=== PATIENT | female | born 1950 | race Caucasian/White ===

== ENCOUNTER 2019-12-13 18:18 | Inpatient (IN) | payer MEDICARE, OTHER ==
[~2019-12-13] VITALS: Ht 162.6 cm; Wt 48.1 kg
--- NOTE | 2019-12-13 18:38 | NUR ---
patient is awake and alert, she is ambulatory with steady gait. Security at bedside for safety and observation.
[2019-12-13] MEDS ORDERED: CEPH-570 PO (18:44)
[2019-12-13] MEDS ORDERED: HYDR-3980 PO (18:44)
[2019-12-13] MEDS ORDERED: QUET25TA PO (18:44)
--- NOTE | 2019-12-13 19:04 | NUR ---
Sergio, observer here to stay with patient. Hand off report given to Dana FRENCH
--- NOTE | 2019-12-13 21:45 | NUR ---
Pt. admitted to [facility] , under care of Dr. Rachel Belongs List completed. Report given to MANOLO Lopez
[2019-12-13 22:00] VITALS: BP 155/66
[2019-12-13] MEDS: CEphaleXIN 500 MG CAPSULE PO SCH (22:05)
[2019-12-13] MEDS ORDERED: TEMAZEPAM 7.5 MG CAPSULE PO PRN (22:15)
[2019-12-13] MEDS ORDERED: LORAZEPAM 1 MG TABLET PO PRN (22:15)
[2019-12-13] MEDS ORDERED: MAG HYDROX/AL HYDROX/SIMETH 30 ML LIQUID UDC PO PRN (22:15)
[2019-12-13] MEDS ORDERED: MAGNESIUM HYDROXIDE 30 ML LIQUID UDC PO PRN (22:15)
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
[2019-12-14] MEDS: CEphaleXIN 500 MG CAPSULE PO SCH ×5 (00:14→20:55)
[2019-12-14] MEDS: TEMAZEPAM 7.5 MG CAPSULE PO PRN (00:49)
--- NOTE | 2019-12-14 05:36 | NUR ---
Patient slept 5.30 hours after receiving a sleeping pill. Bed alarm on and patient up 2x during the night asking " Where is my baby". And " Is my son coming ?" Real Estate Valuer reassured patient and reoriented her to the situation. This patient is very confused but not agitated at this time. Continuing to monitor for safety and provide redirection and reorientation as needed.
[2019-12-14 07:30] VITALS: BP 136/75
[2019-12-14 08:06] LABS: BILIRUBIN,TOTAL 0.5 mg/dL (0.2-1.0); CREATININE 0.9 mg/dL (0.6-1.3); POTASSIUM 3.3 mmol/L (3.5-5.1); TOTAL PROTEIN, SERUM 6.7 g/dL (6.4-8.2)
--- NOTE | 2019-12-14 11:28 | NUR ---
Social Work Initial Discharge Plan: Patient currently lives in an RV with cleo Wallace ([phone]). [address], [place] [address]; ([phone]). Per cleo Wallace ([phone]) would want pt back home upon discharge. housekeeping worker will work with the MD and the treatment team to help coordinate a proper discharge plan.
--- NOTE | 2019-12-14 11:29 | NUR ---
Social Work Family Contact: general lithographic worker contacted patient's son Rodrigo ([phone]) to gather collateral.
--- NOTE | 2019-12-14 11:31 | NUR ---
Social Work Firearms: Flight Operations Inspector completed and submitted a [employer] firearms report for 5150 grave disability certification. A copy of report has been placed in patient chart.
[2019-12-14] MEDS ORDERED: POTASSIUM CHLORIDE 20 MEQ TAB.PRT.SR PO ONE (12:00)
--- NOTE | 2019-12-14 12:59 | NUR ---
Social Work Family Contact: wet room worker contacted patient's son Rodrigo ([phone]) spoke with son who mentioned that he lives in a RV with pt. 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 Pt's son Rodrigo is refusing to understand pt's mental illness. This typewriter mechanic had to educate pt multiple times regarding pt's condition and safety risks. Pt's son threatened this typewriter mechanic if pt is not returning back home he will hire a brushing operator. This typewriter mechanic was able to calm son down and will discuss discharge planning at a later time.
--- NOTE | 2019-12-14 13:07 | NUR ---
Social Work APS Report: This auto service writer filed an APS report for wellness check at home (Intake ID [id number])
[2019-12-14] MEDS: OLANZAPINE ZYDIS 5 MG TAB.RAPDIS PO SCH ×2 (14:51→18:10)
[2019-12-14] MEDS ORDERED: INSULIN REGULAR, HUMAN 300 UNIT/3 ML VIAL SQ PRN (15:45)
[2019-12-14] MEDS ORDERED: DEXTROSE 50% 50 ML DISP.SYRIN IV PRN (15:45)
[2019-12-14 16:00] VITALS: BP 146/77
[2019-12-14] MEDS: BLOOD SUGAR DIAGNOSTIC 1 EACH STRIP VI SCH ×2 (18:09→21:22)
[2019-12-14] MEDS: METFORMIN HCL 500 MG TABLET PO SCH (18:10)
[2019-12-14 20:35] VITALS: BP 128/73
--- NOTE | 2019-12-14 22:09 | NUR ---
GPS/NSG Patient first observed awake on the unit pacing/wandering in the hallway with disheveled unkempt appearance. Patient appeared to be oriented to name otherwise patient is confused and requires constant redirection, as well as orientation to room. Patient has no insight into current situation and exhibits poor judjement. Compliant with medication, is currently on atb tx for UTI. BS hs 79. Continue to provide a safe environment.
[2019-12-15] MEDS: BLOOD SUGAR DIAGNOSTIC 1 EACH STRIP VI SCH ×4 (06:38→20:12)
[2019-12-15 07:30] VITALS: BP 139/71
[2019-12-15] MEDS: OLANZAPINE ZYDIS 5 MG TAB.RAPDIS PO SCH ×2 (08:30→17:03)
[2019-12-15] MEDS: METFORMIN HCL 500 MG TABLET PO SCH ×2 (08:30→17:03)
[2019-12-15] MEDS: CEphaleXIN 500 MG CAPSULE PO SCH ×4 (08:30→20:12)
--- NOTE | 2019-12-15 11:00 | NUR ---
received a call from son Rodrigo , son was upset that the hold was extended to 5250 hold today, the flex o writer operator tries to educate the son about the hold and the Doctor will call him , the Son gave his number ([phone]), called and spoke with regarding the concern
[2019-12-15 16:00] VITALS: BP 112/40
--- NOTE | 2019-12-15 16:47 | NUR ---
called and notify Dr. Alegria for the neuro consult,doctor acknowledge the call and will make rounds [place]
--- NOTE | 2019-12-15 18:32 | NUR ---
GPS: Nursing Notes: Destructive Behavior to Others: Patient is awake and responding to her name, confused, disorganized, forgetful, impaired judgment, wandering around the unit aimlessly, unable to find her room by herself, redirected and reoriented during shift constantly, unable to formulate a viable plan for self care, gets easily irritable when redirected at times, one episode of throwing her coffee on the floor, stated, "I leaving today.. My son Rodrigo is coming for me..", believes she is leaving today, continue with treatment plan.
[2019-12-15] MEDS: CLONAZEPAM 0.5 MG TABLET PO PRN (19:55)
[2019-12-15 20:26] VITALS: BP 147/64
--- NOTE | 2019-12-15 23:42 | NUR ---
Pt awoke and appeared restless. Pt agreed to take a sleeping pill, but when this functional tester typewriters got back with the medication, Pt was sleeping. Restoril 7.5mg held at this time. Charge nurse aware.
[2019-12-16] MEDS: TEMAZEPAM 7.5 MG CAPSULE PO PRN ×2 (00:30→22:19)
--- NOTE | 2019-12-16 00:31 | NUR ---
Pt awoke again and attempted to get into her roommate's bed. Pt placed in tr chair and given Restoril 7.5mg. Will continue to monitor.
[2019-12-16] MEDS: CEphaleXIN 500 MG CAPSULE PO SCH ×3 (05:50→21:08)
--- NOTE | 2019-12-16 06:27 | NUR ---
Received Pt sitting in the tr chair in the hallway with disheveled, unkempt appearance. A+Ox1 to her name only, Pt is disoriented, confused, and requires constant redirection, as well as orientation to her room and the bathroom. Pt has poor insight into current situation and exhibits poor judgement. Remained restless and anxious throughout the shift, Klonopin 0.5mg prn at 1955 and Restoril 7.5mg prn at 0030 both ineffective. Pt again placed in tr chair for her safety as she was wandering and unsteady, and unable to comprehend staff direction. Disorganized in thought process and mentally preoccupied. Compliant with medications with prompting. HS BS HS 112. AM BS 79, no coverage given. Denies pain, VS stable.
[2019-12-16] MEDS: BLOOD SUGAR DIAGNOSTIC 1 EACH STRIP VI SCH ×4 (06:32→20:41)
[2019-12-16 08:02] VITALS: BP 123/68
[2019-12-16] MEDS: METFORMIN HCL 500 MG TABLET PO SCH ×2 (08:39→17:02)
[2019-12-16] MEDS: OLANZAPINE ZYDIS 5 MG TAB.RAPDIS PO SCH ×2 (08:39→16:54)
[2019-12-16] MEDS: CLONAZEPAM 0.5 MG TABLET PO PRN ×2 (13:04→19:42)
[2019-12-16 15:36] VITALS: BP 142/87
--- NOTE | 2019-12-16 18:15 | NUR ---
GPS: Nursing Notes: Destructive Behavior to Others: Patient awake and responding to her name, confused, disorganized, resistant with nursing care, impaired judgment, wandering around the unit aimlessly, getting into other pt's room, redirected and reoriented during shift, but gets easily irritable, talking to unseen others at times, internally preoccupied, disoriented, verbal abusive when talking to self, unable to formulate a viable plan for self care, sundown behavior, angry and anxious affect, assisted with ADL's, poor appetite, continue with treatment plan.
[2019-12-16] MEDS: ACETAMINOPHEN 325 MG TABLET PO PRN (19:43)
[2019-12-16 20:02] VITALS: BP 136/72
[2019-12-17] MEDS: CLONAZEPAM 0.5 MG TABLET PO PRN ×2 (02:38→21:26)
[2019-12-17] MEDS: CEphaleXIN 500 MG CAPSULE PO SCH ×3 (05:51→21:26)
--- NOTE | 2019-12-17 06:33 | NUR ---
PT DIDN'T SLEEP ON MY SHIFT. PT IN NO ACUTE DISTRESS. PT CONFUSED AND NEEDS REORIENTATION. . PRESCRIBED MEDICATION GIVEN AND PT TOLERATED IT WELL. SAFETY AND COMFORT PROVIDED. ALL NEEDS ARE MET. WILL ENDORSE TO INCOMING NURSE FOR CONTINUITY OF CARE.
[2019-12-17] MEDS: BLOOD SUGAR DIAGNOSTIC 1 EACH STRIP VI SCH ×4 (06:34→21:08)
[2019-12-17 07:30] VITALS: BP 138/58
[2019-12-17] MEDS: HYDROCODONE/APAP 10-325 MG TABLET PO PRN ×2 (07:50→14:41)
[2019-12-17] MEDS: METFORMIN HCL 500 MG TABLET PO SCH ×2 (08:00→17:27)
[2019-12-17] MEDS: OLANZAPINE ZYDIS 5 MG TAB.RAPDIS PO SCH ×2 (08:31→16:06)
--- NOTE | 2019-12-17 12:54 | NUR ---
GPS: Nursing Notes: Destructive Behavior to Others: Patient is awake and responding to her name, poor anger management, resistant with nursing care, responding to internal stimuli by, having visual hallucinations, unsteady gait due to her VH, patient is bending herself when walking and trying to pick things from the floor, having auditory hallucinations, talking to unseen others, verbal abusive to unseen others, redirected and reoriented to reality, but becomes easily irritable, stating "My mother is there... I am talking to my father..", talking incoherently, disorganized, confused, constantly talking to self and grabbing the air, episodes of crying when calling for her mother, unable to formulate a viable plan for self care, episodes of trying to scratch staff when assisting with ADL's, continue with treatment plan.
[2019-12-17 16:00] VITALS: BP 141/81
--- NOTE | 2019-12-17 16:13 | NUR ---
Family Contact: SW contacted patient's son Rodrigo ([phone]) and discussed how the pts son wants to be the pts DPOA. SW stated that the process cannot be started here while the pt is on a legal hold and once she is discharged that process can be started.
[2019-12-17 20:00] VITALS: BP 141/58
[2019-12-17] MEDS: ACETAMINOPHEN 325 MG TABLET PO PRN (21:26)
[2019-12-18] MEDS: TEMAZEPAM 7.5 MG CAPSULE PO PRN (01:18)
--- NOTE | 2019-12-18 03:42 | NUR ---
RECEIVED PATIENT IN A MELONY CHAIR IN THE HALLWAY. SHE APPEARS CONFUSED AND DISORIENTED.NOTED TO BE RESPONDING TO INTERNAL STIMULI SHE KEPT TRYING TO PICK AND PULL AN IMAGINARY "SOMETHING" FROM THE FLOOR. USES VERBALLY OFFENSIVE LANGUAGE TO BOTH STAFF AND UNSEEN OTHERS WITH VERY POOR ANGER MANAGEMENT.GIVEN A REALITY RE ORIENTATION BUT THAT MAKES HER ALL THE MORE IRRITABLE. VERY DIFFICULT AND RESISTANT TO TAKING HER MEDICATIONS. SAFETY MEASURES PUT IN PLACE. VISUAL CHECKS MADE ON HER. WILL CONTINUE TO MONITOR.
[2019-12-18] MEDS: BLOOD SUGAR DIAGNOSTIC 1 EACH STRIP VI SCH (06:45)
--- NOTE | 2019-12-18 06:51 | NUR ---
SLEPT FOR ONLY 1HOUR DESPITE BEING GIVEN RESTORIL AT 01:00..PERSONAL HYGIENE MAINTAINED.
[2019-12-18] MEDS: METFORMIN HCL 500 MG TABLET PO SCH ×2 (08:00→17:04)
[2019-12-18] MEDS: HYDROCODONE/APAP 10-325 MG TABLET PO PRN (08:26)
[2019-12-18] MEDS: OLANZAPINE ZYDIS 5 MG TAB.RAPDIS PO SCH ×2 (08:26→16:54)
[2019-12-18 08:38] VITALS: BP 133/58
--- NOTE | 2019-12-18 11:57 | NUR ---
[place] Elder Abuse Hotline: ARETHA called the [place] Elder Abuse Hotline (328-434-3171) and spoke to Damir regarding additional information for the APS report that was made and he recommended that the SW fill out another report due to the additional information. He provided the SW with the online reporting website.
--- NOTE | 2019-12-18 12:00 | NUR ---
Social Work Family Contact: chemical worker contacted patient's son Rodrigo ([phone]) and requested to speak to him regarding the pts discharge plan. Pts son stated that he will not have the pt be discharged anywhere else because he wants her to be home with him. SW stated that it will be the pts decision and if she agrees then she can go home with him. SW stated that she will call the pts son the next day with information regarding the pts medication changes and whether or not she wants to go home and if she does go home then if there is a return agreement from the [facility].
--- NOTE | 2019-12-18 13:57 | NUR ---
[facility] Contact: ARETHA called Yuli ([phone]) who stated that there is a return agreement if the pt is discharged home.
--- NOTE | 2019-12-18 14:59 | NUR ---
APS Report: SW conducted another APS report for the pt on the online reporting website: https://www.reporttoaps.org and printed out the SOC 341 form that was completed to put in the pts chart.
[2019-12-18 15:39] VITALS: BP 90/42
--- NOTE | 2019-12-18 15:57 | NUR ---
Social Work Family Contact: Patient's son Rodrigo ([phone]) contacted the SW and was verbally aggressive and was using profanities because he stated that he wanted the patient to be discharged back to him. Pt's son stated that he has been taking care of her after her brain injury and stated that she does not need extra help. SW stated that the recommendation for this pt is a SNF so that she can receive physical therapy, medication management and also be constantly assessed by doctors and nurses. SW also stated that there are concerns because the pts toxicology showed positive for methamphetamines. Pts son stated that it was only in her urine and not her blood which does not make sense and so the doctors must have done something. Pts son became even more agitated and stated that he was going to get his cloth framer involved. At this point SW asked if he would like to speak to her warehouse packaging supervisor and he agreed. ARETHA transferred the call to her warehouse packaging supervisor, Blanca Metzger LCSW.
--- NOTE | 2019-12-18 16:00 | NUR ---
SNF Referral: ARETHA faxed a referral to [facility] with attention to Yla to the fax number: [phone].
--- NOTE | 2019-12-18 16:07 | NUR ---
GPS: Nursing Notes: Destructive Behavior to Others: Patient is awake and responding to her name, confused, resistant with nursing care, disorganized, impaired judgment, did not sleep for the last three nights, gets easily irritable when redirected, having AH/VH this am, talking to unseen others, constantly grabbing the air, calling for her mother, believes that she is here, redirected and reoriented to reality during shift, poor appetite, but drinking her Glucerna, unable to formulate a viable plan for self care, continue with treatment plan.
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
--- NOTE | 2019-12-18 18:38 | NUR ---
received a call from the patients son Rodrigo , the son wanted to talk to her mom on the phone to convinced her to go home with him, patient was asleep, tried to wake her up, patient move around but went back to sleep, then the son on speaker phone was upset and threatened the selling underwriter , the son says that he will call the media and come to the hospital tomorrow to take her mom, selling underwriter informed transfer and pumphouse operator and security department of this threat Addendum: 12/18/19 at 1850 by LINETTE MENA RN Dr. leong notified
[2019-12-18 20:04] VITALS: BP 108/45
--- NOTE | 2019-12-19 06:13 | NUR ---
Pt slept 10 hrs total. Woke up around 3 in the morning, and used the restroom. Pt also taken Glucerna boost. Tolerated well. Up on gerichair at this time. No signs of agitation.
[2019-12-19 07:30] VITALS: BP 102/50
[2019-12-19] MEDS: OLANZAPINE ZYDIS 5 MG TAB.RAPDIS PO SCH ×3 (08:51→17:27)
[2019-12-19] MEDS: METFORMIN HCL 500 MG TABLET PO SCH ×2 (08:51→17:26)
--- NOTE | 2019-12-19 11:25 | NUR ---
Probable Cause Hearing: Pts 5250 hold was upheld for grave disability.
--- NOTE | 2019-12-19 13:05 | NUR ---
SNF Contact: ARETHA contacted Song ([phone]), mortgage loan coordinator from [facility], and was informed that the pt was accepted to their facility.
--- NOTE | 2019-12-19 13:06 | NUR ---
[place] Officer Contact: ARETHA contacted Officer Issa Sims ([phone]) from the [place] [employer] as he was the one who wrote the pts 5150 hold. Officer was not in the office so ARETHA left a voicemail message stating that she would like to discuss the events of the hold.
[2019-12-19 16:00] VITALS: BP 126/75
[2019-12-19 20:00] VITALS: BP 136/94
--- NOTE | 2019-12-19 20:30 | NUR ---
RECEIVED PATIENT SITTING IN A NATHANIEL CHAIR NEAR THE NURSING STATION. PT NOTED A/O X 1. SHE IS CALM AT THIS TIME. PT IS A POOR HISTORIAN. SHE IS UNABLE TO HAVE A MEANINGFUL CONVERSATION WITH THIS LOST CHARGE CARD CLERK. V/S STABLE. SHE IS REASSURED FOR HER SAFETY. SAFETY AND FALL PRECAUTION IN PLACE. WILL CONTINUE TO MONITOR/
[2019-12-19] MEDS: TEMAZEPAM 7.5 MG CAPSULE PO PRN (22:20)
[2019-12-20 07:30] VITALS: BP 104/68
[2019-12-20] MEDS: OLANZAPINE ZYDIS 5 MG TAB.RAPDIS PO SCH ×3 (08:24→17:20)
[2019-12-20] MEDS: METFORMIN HCL 500 MG TABLET PO SCH ×2 (08:24→17:20)
--- NOTE | 2019-12-20 09:51 | NUR ---
patient is awake and verbally responsive, calm and cooperative. No signs of distress noted. Afebrile. No complain of Pain or discomfort. complaint with medications. safety Measures provided. Will continue to monitor.
--- NOTE | 2019-12-20 14:06 | NUR ---
Social Work Family Contact: pantry goods worker contacted patient's son Rodrigo ([phone]) to return his voicemail messages. SW stated that she is aware that he has concerns regarding the pts discharge plan. Pts son became verbally aggressive with the SW once again and made the following statements: "I am going take her out of there. She belongs at home with me," "If my mother dies then you are a murderer," "You are all liars and you think that me and my mom, an old lady, are liars," "I am going to come after you. I am going to come after all of you. I have apricot washer on the case, I have the media on this case, and they are all going to come after you." SW stated that she will not engage with threats and that she will call him back at a later time to inform him of the placement location and date.
--- NOTE | 2019-12-20 15:49 | NUR ---
[place] Officer Contact: ARETHA contacted Officer Issa Mansfield ([phone]) from the [place] [employer] as he was the one who wrote the pts 5150 hold. Officer was not in the office so SW left a voicemail message stating that she would like to discuss the events of the hold. ARETHA was also informed that she can email him since his shift is from 6:30pm-6:30am and so he will not be on duty during the SW's time period. ARETHA sent an email asking for information to be left on her voicemail.
[2019-12-20 16:00] VITALS: BP 130/76
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
--- NOTE | 2019-12-20 16:12 | NUR ---
[place] Elder Abuse Hotline: ARETHA called the [place] Elder Abuse Hotline ([phone]) and spoke to Damir who stated that he did receive the report and that it was being reviewed. He stated that he cannot give me much more information than that but was willing to verbally take down more information from the SW regarding the interactions with the pts son. He stated that he believes that we should not advise him as to when the pt is being discharged and where. He believes that as it is our job to keep the pt safe we can refrain from providing this information.
[2019-12-20 20:43] VITALS: BP 123/80
[2019-12-20] MEDS: TEMAZEPAM 7.5 MG CAPSULE PO PRN (22:08)
[2019-12-21 07:30] VITALS: BP 106/51
[2019-12-21] MEDS: OLANZAPINE ZYDIS 5 MG TAB.RAPDIS PO SCH ×3 (08:28→16:03)
[2019-12-21] MEDS: METFORMIN HCL 500 MG TABLET PO SCH ×2 (08:28→17:27)
[2019-12-21] MEDS: CLONAZEPAM 0.5 MG TABLET PO PRN ×2 (08:37→14:37)
[2019-12-21 16:00] VITALS: BP 134/67
--- NOTE | 2019-12-21 16:23 | NUR ---
no distress noted during shift, denied suicidal thoughts, still noted with angry mood, medicated as ordered, effective. kept safe and clean
[2019-12-21 20:50] VITALS: BP 146/88
[2019-12-22] MEDS: CLONAZEPAM 0.5 MG TABLET PO PRN ×2 (00:17→20:11)
--- NOTE | 2019-12-22 06:58 | NUR ---
Pt slept well during shift with PRN Klonopin given at 0017. No new behavior and no acute distress. Continue monitor with Q/15min head count done.
[2019-12-22 07:30] VITALS: BP 129/40
[2019-12-22] MEDS: OLANZAPINE ZYDIS 5 MG TAB.RAPDIS PO SCH ×3 (08:26→17:09)
[2019-12-22] MEDS: METFORMIN HCL 500 MG TABLET PO SCH ×2 (08:26→17:09)
[2019-12-22] MEDS: ACETAMINOPHEN 325 MG TABLET PO PRN (11:11)
[2019-12-22 16:00] VITALS: BP 144/67
[2019-12-22 20:00] VITALS: BP 139/56
--- NOTE | 2019-12-23 06:35 | NUR ---
Received Pt sitting in the tr chair in the hallway with disheveled, unkempt appearance. A+Ox1 to her name only, Pt is disoriented, confused, and requires constant redirection, as well as orientation to her room and the bathroom. Pt has poor insight into current situation and exhibits poor judgement. Disorganized in thought process and mentally preoccupied. Presents with anxiety and restlessness, Klonopin 0.5mg administered with good effect. Compliant with medications with prompting. Denies pain, VS stable.
[2019-12-23 07:30] VITALS: BP 110/65
[2019-12-23] MEDS: OLANZAPINE ZYDIS 5 MG TAB.RAPDIS PO SCH ×3 (08:19→17:14)
[2019-12-23] MEDS: METFORMIN HCL 500 MG TABLET PO SCH ×2 (08:19→17:14)
[2019-12-23 08:43] LABS: BASOPHILS % (AUTO) 0.5 % (0.0-2.0); EOSINOPHILS # (AUTO) 0.1 K/uL (0.0-0.7); EOSINOPHILS % (AUTO) 1.3 % (0.0-7.0); HEMATOCRIT 42.6 % (31.2-41.9); LYMPHOCYTES # (AUTO) 1.1 K/uL (20.0-40.0); LYMPHOCYTES % (AUTO) 19.5 % (20.5-51.5); MEAN CORPUSCULAR HEMOGLOBIN 27.9 uug (24.7-32.8); MEAN CORPUSCULAR HGB CONC 33 g/dL (32.3-35.6); MONOCYTES # (AUTO) 0.3 K/uL (2.0-10.0); MONOCYTES % (AUTO) 5.6 % (0.0-11.0); NEUTROPHILS # (AUTO) 3.9 K/uL (1.8-8.9); NEUTROPHILS % (AUTO) 73.1 % (38.5-71.5); PLATELET COUNT (AUTO) 228 K/uL (179-408); RED BLOOD CELL COUNT(AUTO) 5.01 MIL/uL (3.63-4.92); WHITE BLOOD COUNT (AUTO) 5.4 K/uL (3.8-11.8)
--- NOTE | 2019-12-23 08:59 | NUR ---
Gps/Oracle Database Architect- Patient was swabbed for Covid by Jhonathan Randall in Charge
[2019-12-23 09:00] LABS: BILIRUBIN,TOTAL 0.3 mg/dL (0.2-1.0); CREATININE 1.1 mg/dL (0.6-1.3); MAGNESIUM 2.4 mg/dL (1.8-2.4); POTASSIUM 3.8 mmol/L (3.5-5.1)
--- NOTE | 2019-12-23 11:03 | NUR ---
received a call from patients Son Rodrigo , son says that he spoke with his mom on the phone saying that she wanted to go home, he said he will pick her up and bring his livestock caretaker, the son threatening the video game script writer that he will file lawsuit and denies all accusation fro the mounted police officer, the video game script writer told the son that he needs to talk with psychiatrist regarding his concern and that at this time the only person can make decision is the psychiatrist, the patients son drop the call,
[2019-12-23] MEDS: ACETAMINOPHEN 325 MG TABLET PO PRN (17:14)
[2019-12-23] MEDS: CLONAZEPAM 0.5 MG TABLET PO PRN (19:58)
[2019-12-23 20:00] VITALS: BP 122/68
[2019-12-24] MEDS: ACETAMINOPHEN 325 MG TABLET PO PRN (06:15)
--- NOTE | 2019-12-24 06:28 | NUR ---
Received Pt sitting in the tr chair in the hallway with disheveled, unkempt appearance. A+Ox1 to her name only, Pt is disoriented, confused, and requires constant redirection, as well as orientation to her room and the bathroom. Pt has poor insight into current situation and exhibits poor judgement. Disorganized in thought process and mentally preoccupied. Has very poor attention span and memory, needs frequent reorientation. Wanders the hallways aimlessly and wanders into other Pt's rooms. Compliant with medications with prompting and assistance. Klonopin 0.5mg administered for anxiety with moderate effect. Denies pain, VS stable.
[2019-12-24 07:30] VITALS: BP 141/77
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
[2019-12-24] MEDS: METFORMIN HCL 500 MG TABLET PO SCH (09:45)
[2019-12-24] MEDS: OLANZAPINE ZYDIS 5 MG TAB.RAPDIS PO SCH ×2 (09:45→12:32)
--- NOTE | 2019-12-24 13:33 | NUR ---
1130 Called [facility], [facility]- spoke with Ms. Bedoya RN report given regarding patient will be discharged to their facility today. Also, RN informed regarding medications to continue upon hospital discharge, RN verbalized understanding.1330 Patient discharged to above facility via ambulance. Patient condition , denies STEINBERG/HI. No delusion . No a/v hallucination noted.
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
== END 2019-12-24 13:30 | DRG 885 ==
LOC: ER 18:18 → EDBD 21:39 → GPS 21:39
PROVIDERS: ADMIT Psychiatry & Neurology Psychiatry; ATTEND Registered Nurse
DX: F29 Unspecified psychosis not due to a substance or known physiological condition (principal); F01.51 Vascular dementia, unspecified severity, with behavioral disturbance; N39.0 Urinary tract infection, site not specified; F23 Brief psychotic disorder; E78.5 Hyperlipidemia, unspecified; E87.6 Hypokalemia; M79.7 Fibromyalgia; Z86.73 Personal history of transient ischemic attack (TIA), and cerebral infarction without residual deficits; Z85.118 Personal history of other malignant neoplasm of bronchus and lung; Z73.6 Limitation of activities due to disability; F15.11 Other stimulant abuse, in remission; F11.11 Opioid abuse, in remission; E11.9 Type 2 diabetes mellitus without complications; Z79.84 Long term (current) use of oral hypoglycemic drugs
CPT/HCPCS: 36415; 70450; 83735; 84443; 85025; A4663; J1815